=== PATIENT | female | born 1995 | race Caucasian/White ===

== ENCOUNTER → 2019-06-24 | Outpatient (CLI) | payer BC, OTHER ==
--- NOTE | 2019-06-24 08:27 | US ---
EXAMINATION TYPE: US liver DATE OF EXAM: 06/24/2019 COMPARISON: 07/27/2013 CLINICAL HISTORY: R74.8 Elevated Liver Enzymes. Abnormal labs, no pain EXAM MEASUREMENTS: Liver Length: 18.1 cm Gallbladder Wall: 0.2 cm CBD: 0.3 cm Right Kidney: 11.4 x 5.3 x 4.8 cm Pancreas: Tail obscured by overlying bowel gas Liver: Echogenic and enlarged. This finding most commonly related to hepatic steatosis and limits ev aluation for hepatic masses. Hypoechoic lesion in the left hepatic lobe 1.1 x 1.1 x 0.9 cm. Hypoechoi c area, possibly sparing seen adjacent to GB. Gallbladder: wnl Evidence for sonographic Hansen's sign: neg CBD: wnl Right Kidney: wnl IMPRESSION: 1. Sonographic findings most commonly related to hepatic steatosis. Correlate with liver function berkley t results. 2. Left hepatic lobe hypoechoic lesion was not clearly seen on the exam of 2012. This could represent a small cyst although no clear increased through transmission is seen for definitive diagnosis. Thre e-phase CT or MR abdomen could confirm. Area of probable focal fatty sparing is also seen adjacent to the gallbladder fossa in a typical location.
== END | disposition home or self-care (01) ==
LOC: RADUSWWP 07:28
PROVIDERS: ATTEND Family Medicine
DX: R74.8 Abnormal levels of other serum enzymes (principal)
CPT/HCPCS: 76705

== ENCOUNTER → 2023-01-22 | Outpatient (CLI) | payer OTHER ==
--- NOTE | 2023-01-22 10:52 | US ---
EXAMINATION TYPE: US thyroid st tissue head/neck DATE OF EXAM: 01/22/2023 COMPARISON: NONE CLINICAL INDICATION: Female, 27 years old with history of E04.9 NONTOXIC GOITER; Neck swelling GLAND SIZE: Right Lobe: 5.6 x 1.6 x 2.0 cm, mildly enlarged Overall Parenchyma: heterogenous Left Lobe: 5.4 x 1.5 x 1.8 cm, mildly enlarged Overall Parenchyma: heterogenous Isthmus Thickness: 0.3 cm NODULES RIGHT: # of nodules measured on right: 1 1. 0.8 X 0.3 x 0.7 cm, lower medial, cystic or almost completely cystic, anechoic nodule, which is wider than tall, with smooth margins, with echogenic foci. This is most consistent with a colloid nod ule. Prior size: no previous LEFT: # of nodules measured on left: 0 ISTHMUS: # of nodules measured in the isthmus: 0 Bilateral neck scanned, right neck - 2.4 x 0.9 x 2.0cm lymph node, left neck - 2.3 x 1.0 x 1.2cm lymp h node. IMPRESSION: 1. Subcentimeter right thyroid lobe cystic nodule consistent with a colloid nodule. 2. Bilateral neck mildly prominent lymph nodes which may be reactive.
== END | disposition home or self-care (01) ==
LOC: RADUSWWP 09:58
PROVIDERS: ATTEND Family Medicine
DX: E04.1 Nontoxic single thyroid nodule (principal)
CPT/HCPCS: 76536

== ENCOUNTER → 2023-02-27 | Outpatient (CLI) | payer OTHER ==
--- NOTE | 2023-02-27 08:49 | USB ---
Reason for Exam: Clinical finding. Technique: Method: Whole Breast Handheld. Findings: The whole breast of both breasts, the axilla of both breasts and the retroareolar of both breasts were scanned. No solid or cystic masses are identified.. Overall Assessment: Negative, BI-RAD 1 Management: Screening Mammogram of both breasts at age 33. A clinical breast exam by your physician is recommended on an annual basis and results should be correlated with mammographic findings. This exam should not preclude additional follow-up of suspicious palpable abnormalities. Results were given to the patient verbally at the time of exam. Electronically signed and approved by: Darien Cason D.O. Radiologis
--- NOTE | 2023-02-27 09:34 | US ---
EXAMINATION TYPE: US pelvic complete DATE OF EXAM: 02/27/2023 COMPARISON: NONE CLINICAL INDICATION: Female, 27 years old with history of N83.209 N63.10 R74.10; Pt states pelvic oj n and last menses was heavy with clots TECHNIQUE: Transabdominal (TA). Transabdominal sonographic images of the pelvis were acquired. Date of LMP: 02/18/2023 EXAM MEASUREMENTS: Uterus: 11.1 x 4.7 x 5.4 cm Endometrial Stripe: Right horn= 0.3 cm Left horn= 0.5 cm Right Ovary: 4.0 x 3.9 x 2.9 cm Left Ovary: 4.5 x 4.4 x 2.8 cm 1. Uterus: Anteverted wnl 2. Endometrium: Possible bicornuate in appearance 3. Right Ovary: Enlarged, possibly polycystic in appearance 4. Left Ovary: Enlarged, possibly polycystic in appearance, dominant follicle= 1.8 x 1.5 x 1.7 cm 5. Bilateral Adnexa: wnl 6. Posterior cul-de-sac: wnl IMPRESSION: 1. Bicornuate uterus or partial septation of the uterus. 2. Left ovarian cyst. Follow-up in 6 weeks following next normal menstrual period can be performed to document resolution.
--- NOTE | 2023-02-27 10:42 | US ---
EXAMINATION TYPE: US liver DATE OF EXAM: 02/27/2023 COMPARISON: US CLINICAL INDICATION: Female, 27 years old with history of N83.209 N63.10 R74.10; Elevated LFT's TECHNIQUE: Multiple sonographic images of the right upper quadrant are obtained. 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 Hepatomegaly with mild fatty infiltration of the liver
== END | disposition home or self-care (01) ==
LOC: RADUSWWP 08:04
PROVIDERS: ATTEND Family Medicine
DX: N63.10 Unspecified lump in the right breast, unspecified quadrant (principal); N63.20 Unspecified lump in the left breast, unspecified quadrant; R74.01 Elevation of levels of liver transaminase levels; K76.0 Fatty (change of) liver, not elsewhere classified; R16.0 Hepatomegaly, not elsewhere classified; Q51.3 Bicornate uterus; N83.202 Unspecified ovarian cyst, left side
CPT/HCPCS: 76705; 76856

== ENCOUNTER → 2023-06-17 | Outpatient (CLI) | payer OTHER ==
--- NOTE | 2023-06-17 10:24 | US ---
EXAMINATION TYPE: US pelvic complete DATE OF EXAM: 06/17/2023 COMPARISON: 02/27/2023 CLINICAL INDICATION: Female, 27 years old with history of N83.202 OVARIAN CYST, LEFT SIDE; hx of cys t TECHNIQUE: Transabdominal (TA). EXAM MEASUREMENTS: Uterus: 10.5 x 4.6 x 6.1 cm Endometrial Stripe: right 1.6 cm Left 1.1 cm Right Ovary: 3.5 x 2.4 x 3.1 cm Left Ovary: 4.2 x 2.9 x 4.1 cm 1. Uterus: Anteverted Bicornuate vs. septated 2. Endometrium: 2 endometriums visualized 3. Right Ovary: wnl 4. Left Ovary: 2 cm cystic area seen 5. Bilateral Adnexa: wnl 6. Posterior cul-de-sac: wnl Uterus appears stable from comparison of 02/27/2023. Left ovarian cyst was present previously measurin g 1.8 x 1.8 x 1.5 cm. IMPRESSION: 1. Elevated bicornuate uterus present. Septated uterus may be present. The endometrial stripe on the right is thicker 1.6 cm. 2. Left ovarian cyst minimally larger than the comparison study.
== END | disposition home or self-care (01) ==
LOC: RADUSWWP 09:15
PROVIDERS: ATTEND Family Medicine
DX: Q51.3 Bicornate uterus (principal); N83.202 Unspecified ovarian cyst, left side
CPT/HCPCS: 76856

== ENCOUNTER 2023-06-20 13:44 | Emergency (ER) | payer OTHER ==
[2023-06-20 14:02] VITALS: RESP 18; TEMP 98.9
[2023-06-20 14:50] LABS: Basophils % (A) 0 %; Eosinophils # (A) 0.1 k/uL (0-0.7); Eosinophils % (A) 1 %; HGB 12.4 gm/dL (11.4-16.0); Lymphocytes # (A) 2.8 k/uL (1.0-4.8); Lymphocytes % (A) 22 %; MCH 26.8 pg (25.0-35.0); MCHC 33.5 g/dL (31.0-37.0); MCV 79.9 fL (80.0-100.0); Mean Platelet Volume 7.3; Monocytes # (A) 0.4 k/uL (0-1.0); Monocytes % (A) 3 %; Neutrophils # (A) 9.4 k/uL (1.3-7.7); Neutrophils % (A) 73 %; Platelet Count 238 k/uL (150-450); RBC 4.62 m/uL (3.80-5.40); RDW 14.8 % (11.5-15.5); WBC 12.9 k/uL (3.8-10.6)
[2023-06-20 15:05] LABS: ALT 60 U/L (4-34); AST 60 U/L (14-36); African American GFR (CKD) >90 (>60 ml/min/1.73 sqM); Albumin 4.3 g/dL (3.5-5.0); Alkaline Phosphatase 106 U/L (38-126); Amylase 54 U/L (30-110); Anion Gap 10 mmol/L; Blood Urea Nitrogen 11 mg/dL (7-17); Calcium 9.2 mg/dL (8.4-10.2); Carbon Dioxide 25 mmol/L (22-30); Chloride 103 mmol/L (98-107); Glucose 98 mg/dL (74-99); Lipase 69 U/L (23-300); Non-African American GFR(CKD) >90 (>60 ml/min/1.73 sqM); Potassium 4.1 mmol/L (3.5-5.1); Sodium 138 mmol/L (137-145); Total Protein 7.2 g/dL (6.3-8.2)
[2023-06-20 15:23] LABS: Appearance,Urine Cloudy (Clear); Bilirubin,Urine Negative (Negative); Blood,Urine Negative (Negative); Color,Urine Yellow; Glucose,Urine (UA) Negative (Negative); Ketones,Urine Negative (Negative); Leukocyte Esterase,Urine Large (Negative); Mucus,Urine Rare /hpf; Nitrite,Urine Negative (Negative); Protein,Urine Negative (Negative); RBC,Urine 1 /hpf (0-5); Specific Gravity,Urine 1.018 (1.001-1.035); Squamous Epithelial Cell,Urine 15 /hpf (0-4); Urobilinogen,Urine <2.0 mg/dL (<2.0); WBC,Urine 5 /hpf (0-5)
--- NOTE | 2023-06-20 15:50 | US ---
EXAMINATION TYPE: US transvaginal DATE OF EXAM: 06/20/2023 COMPARISON: 06/17/23 CLINICAL INDICATION: Female, 27 years old with history of pain; severe lower abdominal, pelvic pain s dorys yestrday, difficulty using the bathroom TECHNIQUE: Transvaginal (TV). Transvaginal sonographic images were medically necessary to better as sess the following anatomy: Ovaries Date of LMP: 05/25/23 EXAM MEASUREMENTS: Uterus: 9.7x5.1x6.2 cm Endometrial Stripe: 1.7 cm Right Ovary: 4.2x2.4x4.1 cm Left Ovary: 5.4x3.2x4.3 cm 1. Uterus: Anteverted wnl reason a questionable bicornuate uterus on prior exam 2. Endometrium: upper limits, period starts tomorrow 3. Right Ovary: wnl 4. Left Ovary: complex cystic area again seen: 2.0x1.6x2.2cm Spectral, color and waveform doppler imaging shows good arterial and venous flow within the ovaries ; there is no evidence for ovarian torsion. 5. Bilateral Adnexa: Right hypoechoic area noted in right adnexa/ posterior cul-de-sac with free flu id, may be appreciated bst on another imaging modality 6. Posterior cul-de-sac: free fluid ovaries appear bulky with several small peripheral follicles IMPRESSION: 1. Complex left ovarian cystic lesion measuring 2.2 cm. Could represent a complicated ovarian cyst\he morrhagic cyst or cystic lesion. Less likely differential diagnostic considerations of PID or tubo-ov leilani abscess not entirely excluded. Correlate with beta-hCG to exclude ectopic . 2. Hypoechoic area noted in the right adnexa posterior cul-de-sac free fluid not adequately evaluated . Could be related to blood products or other etiology. Recommend CT scan for further evaluation.
[2023-06-20] MEDS ORDERED: ACETAMINOPHEN TAB 325 MG TAB PO STA (16:39)
--- NOTE | 2023-06-20 17:25 | CT ---
EXAMINATION TYPE: CT abdomen pelvis wo con DATE OF EXAM: 06/20/2023 HISTORY: 27F ED patient with pain Additional: Low abdominal pain, ovarian cyst on prior ultrasound. CT DLP: 1587.4 mGycm. Automated Exposure Control for Dose Reduction was Utilized. TECHNIQUE: CT scan of the abdomen and pelvis is performed without oral or IV contrast. COMPARISON: None. FINDINGS: LUNG BASES: No significant abnormality is appreciated. LIVER/GB: No significant abnormality is appreciated. PANCREAS: No significant abnormality is seen. SPLEEN: No significant abnormality is seen. ADRENALS: No significant abnormality is seen. KIDNEYS: No significant abnormality is seen. BOWEL: No significant abnormality is seen. PERITONEAL CAVITY: No peritoneal fluid. No pneumoperitoneum. PELVIC VISCERA: No gross abnormality seen. LYMPH NODES: No greater than 1cm abdominal or pelvic lymph nodes are appreciated. OSSEOUS STRUCTURES: No aggressive lesion. Limitation of the study: Without IV contrast there is limited CT sensitivity for focal visceral lesions, intraluminal filling defects, intravascular pathology. IMPRESSION: No acute process.
--- NOTE | 2023-06-20 17:35 | ED ---
Abdominal Pain HPI - General Chief Complaint: Abdominal Pain Stated Complaint: Cyst Time Seen by Provider: 06/20/23 14:01 Source: patient, RN notes reviewed Mode of arrival: ambulatory Limitations: no limitations - History of Present Illness Initial Comments: Patient is a 27-year-old female presented ER with a chief complaint of lower abdominal pain. Patient states she had a pelvic ultrasound a couple of days ago which revealed a cyst on her left ovary. Patient reports this pain is constant and she is taking [id number] Tylenol with slight relief. Patient is due for her menstrual cycle any day now. Patient denies any constipation or diarrh ea, chest pain, shortness of breath, fever, night sweats, chills. - Related Data Previous Rx's Medication Instructions Recorded Nitrofurantoin Monohyd/M-Cryst 100 mg PO Q12HR #10 cap 06/20/23 [Macrobid] Allergies Allergy/AdvReac Type Severity Reaction Status Date / Time No Known Allergies Allergy Verified 06/20/23 13:53 Review of Systems ROS Statement: Those systems with pertinent positive or pertinent negative responses have been documented in the HPI. ROS Other: All systems not noted in ROS Statement are negative. Past Medical History Past Medical History: No Reported History History of Any Multi-Drug Resistant Organisms: None Reported Past Surgical History: Orthopedic Surgery Past Psychological History: No Psychological Hx Reported Smoking Status: Never smoker Past Alcohol Use History: Occasional Past Drug Use History: None Reported General Exam Limitations: no limitations General appearance: alert, in no apparent distress Respiratory exam: Present: normal lung sounds bilaterally. Absent: respiratory distress, wheezes, rales, rhonchi, stridor Cardiovascular Exam: Present: regular rate, normal rhythm, normal heart sounds. Absent: systolic murmur, diastolic murmur, rubs, gallop, clicks GI/Abdominal exam: Present: soft, tenderness (Suprapubic), normal bowel sounds Neurological exam: Present: alert, oriented X3, CN II-XII intact Psychiatric exam: Present: normal affect, normal mood Skin exam: Present: warm, dry, intact, normal color. Absent: rash Course Vital Signs 06/20/23 06/20/23 13:53 18:06 Temperature 98.9 F Pulse Rate 73 87 Respiratory 18 18 Rate Blood Pressure 129/77 O2 Sat by Pulse 96 97 Oximetry Medical Decision Making - Medical Decision Making Was pt. sent in by a medical professional or institution ([facility]NELL Toussaint, [employer] T[employer] WINDER HELPER, urgent care, hospital, or group home...) When possible be specific @ -No Did you speak to anyone other than the patient for history (EMS, parent, family, police, friend...)? What history was obtained from this source @ -No Did you review nursing and triage notes (agree or disagree)? Why? @ -I reviewed and agree with nursing and triage notes Were old charts reviewed (outside hosp., previous admission, EMS record, old EKG, old radiological studies, urgent care reports/EKG's, group home records)? Report findings @ -No old charts were reviewed Differential Diagnosis (chest pain, altered mental status, abdominal pain women, abdominal pain men, vaginal bleeding, weakness, fever, dyspnea, syncope, headache, dizziness, GI bleed, back pain, seizure, CVA, palpatations, mental health, musculoskeletal)? @ -Differential Abdominal Pain Women: Appendicitis, Cholecystitis, diverticulosis, ischemic bowel, pancreatitis, hepatitis, UTI, gastroenteritis, AAA, incarcerated hernia, bowel obstruction, constipation, inflammatory bowel, hepatitis, peptic ulcer disease, splenic inf arction, perforated viscus, vulvitis, ovarian torsion, PID, kidney stone, placenta abruption, this is not meant to be an all-inclusive list EKG interpreted by me (3pts min.). @ -None X-rays interpreted by me (1pt min.). @ -None done CT interpreted by me (1pt min.). @ -CT abdomen and pelvis showed no acute processes. U/S interpreted by me (1pt. min.). @ -Transvaginal ultrasound showed a 2.2 cm ovarian cyst on the left. Hypoechoic area noted on right adnexa. No free fluid noted in the posterior cul-de-sac. What testing was considered but not performed or refused? (CT, X-rays, U/S, labs)? Why? @ -None What meds were considered but not given or refused? Why? @ -None Did you discuss the management of the patient with other professionals (professionals i.e. DONNELL Toussaint, SP[employer] T[employer] WINDER HELPER, lab, RT, psych nurse, director social welfare, ticket agent, teacher, child support case officer, mental health case manager)? Give summary @ -No Was smoking cessation discussed for >3mins.? @ -No Was critical care preformed (if so, how long)? @ -No Were there social determinants of health that impacted care today? How? (Homelessness, low income, unemployed, alcoholism, drug addiction, transportation, low edu. Level, literacy, decrease access to med. care, custodial, rehab)? @ -No Was there de-escalation of care discussed even if they declined (Discuss DNR or withdrawal of care, Hospice)? DNR status @ -No What co-morbidities impacted this encounter? (DM, HTN, Smoking, COPD, CAD, Cancer, CVA, ARF, Chemo, Hep., AIDS, mental health diagnosis, sleep apnea, morbid obesity)? @ -None Was patient admitted / discharged? Hospital course, mention meds given and route, prescriptions, significant lab abnormalities, going to OR and other pertinent info. @ -Discharge. Labs obtained in the ER were significant for white blood cell count of 12.9. Urine hCG was negative UA showed large leukocytes. Patient received by mouth Tylenol for symptoms in the ER. Patient underwent a transvaginal ultrasound which showed a 2.2 cm ovarian cyst on the left ovary. There is also hypoechoic area noted on the right adnexa, no free fluid found in posterior cul-de-sac. CT abdomen and pelvis showed no acute processes. Patient will be discharged home in stable condition. Patient will be prescribed Macrobid. Patient advised follow-up with PCP and BULK STATION OPERATOR for further care. Patient expressed understanding and agreement with care plan. Undiagnosed new problem with uncertain prognosis? @ -No Drug Therapy requiring intensive monitoring for toxicity (Heparin, Nitro, Insulin, Cardizem)? @ -No Were any procedures done? @ -No Diagnosis/symptom? @ -Urinary tract infection/Left ovarian cyst Acute, or Chronic, or Acute on Chronic? @ -Acute Uncomplicated (without systemic symptoms) or Complicated (systemic symptoms)? @ -Uncomplicated Side effects of treatment? @ -No Exacerbation, Progression, or Severe Exacerbation? @ -No Poses a threat to life or bodily function? How? (Chest pain, [place], [place], pneumonia, PE, COPD, DKA, ARF, appy, cholecystitis, CVA, Diverticulitis, Homicidal, Suicidal, threat to staff... and all critical care pts) @ -No - Lab Data Result diagrams: 06/20/23 14:31 06/20/23 14:31 Lab Results 06/20/23 06/20/23 06/20/23 Range/Units 14:31 14:31 14:31 WBC 12.9 H (3.8-10.6) k/uL RBC 4.62 (3.80-5.40) m/uL Hgb 12.4 (11.4-16.0) gm/dL Hct 37.0 (34.0-46.0) % MCV 79.9 L (80.0-100.0) fL MCH 26.8 (25.0-35.0) pg MCHC 33.5 (31.0-37.0) g/dL RDW 14.8 (11.5-15.5) % Plt Count 238 (150-450) k/uL MPV 7.3 Neutrophils % 73 % Lymphocytes % 22 % Monocytes % 3 % Eosinophils % 1 % Basophils % 0 % Neutrophils # 9.4 H (1.3-7.7) k/uL Lymphocytes # 2.8 (1.0-4.8) k/uL Monocytes # 0.4 (0-1.0) k/uL Eosinophils # 0.1 (0-0.7) k/uL Basophils # 0.0 (0-0.2) k/uL Sodium (137-145) mmol/L Potassium (3.5-5.1) mmol/L Chloride (98-107) mmol/L Carbon Dioxide (22-30) mmol/L Anion Gap mmol/L BUN (7-17) mg/dL Creatinine (0.52-1.04) mg/dL Est GFR (CKD-EPI)AfAm (>60 ml/min/1.73 sqM) Est GFR (CKD-EPI)NonAf (>60 ml/min/1.73 sqM) Glucose (74-99) mg/dL Plasma Lactic Acid Carlos (0.7-2.0) mmol/L Calcium (8.4-10.2) mg/dL Total Bilirubin (0.2-1.3) mg/dL AST (14-36) U/L ALT (4-34) U/L Alkaline Phosphatase (38-126) U/L Total Protein (6.3-8.2) g/dL Albumin (3.5-5.0) g/dL Amylase (30-110) U/L Lipase (23-300) U/L Urine Color Yellow Urine Appearance Cloudy H (Clear) Urine pH 7.0 (5.0-8.0) Ur Specific [place] 1.018 (1.001-1.035) Urine Protein Negative (Negative) Urine Glucose (UA) Negative (Negative) Urine Ketones Negative (Negative) Urine Blood Negative (Negative) Urine Nitrite Negative (Negative) Urine Bilirubin Negative (Negative) Urine Urobilinogen <2.0 (<2.0) mg/dL Ur Leukocyte Esterase Large H (Negative) Urine RBC 1 (0-5) /hpf Urine WBC 5 (0-5) /hpf Ur Squamous Epith Cells 15 H (0-4) /hpf Urine Mucus Rare H (None) /hpf Urine HCG, Qual Not Detected (Not Detectd) 06/20/23 06/20/23 Range/Units 14:31 14:31 WBC (3.8-10.6) k/uL RBC (3.80-5.40) m/uL Hgb (11.4-16.0) gm/dL Hct (34.0-46.0) % MCV (80.0-100.0) fL MCH (25.0-35.0) pg MCHC (31.0-37.0) g/dL RDW (11.5-15.5) % Plt Count (150-450) k/uL MPV Neutrophils % % Lymphocytes % % Monocytes % % Eosinophils % % Basophils % % Neutrophils # (1.3-7.7) k/uL Lymphocytes # (1.0-4.8) k/uL Monocytes # (0-1.0) k/uL Eosinophils # (0-0.7) k/uL Basophils # (0-0.2) k/uL Sodium 138 (137-145) mmol/L Potassium 4.1 (3.5-5.1) mmol/L Chloride 103 (98-107) mmol/L Carbon Dioxide 25 (22-30) mmol/L Anion Gap 10 mmol/L BUN 11 (7-17) mg/dL Creatinine 0.53 (0.52-1.04) mg/dL Est GFR (CKD-EPI)AfAm >90 (>60 ml/min/1.73 sqM) Est GFR (CKD-EPI)NonAf >90 (>60 ml/min/1.73 sqM) Glucose 98 (74-99) mg/dL Plasma Lactic Acid Carlos 0.8 (0.7-2.0) mmol/L Calcium 9.2 (8.4-10.2) mg/dL Total Bilirubin 1.0 (0.2-1.3) mg/dL AST 60 H (14-36) U/L ALT 60 H (4-34) U/L Alkaline Phosphatase 106 (38-126) U/L Total Protein 7.2 (6.3-8.2) g/dL Albumin 4.3 (3.5-5.0) g/dL Amylase 54 (30-110) U/L Lipase 69 (23-300) U/L Urine Color Urine Appearance (Clear) Urine pH (5.0-8.0) Ur Specific [place] (1.001-1.035) Urine Protein (Negative) Urine Glucose (UA) (Negative) Urine Ketones (Negative) Urine Blood (Negative) Urine Nitrite (Negative) Urine Bilirubin (Negative) Urine Urobilinogen (<2.0) mg/dL Ur Leukocyte Esterase (Negative) Urine RBC (0-5) /hpf Urine WBC (0-5) /hpf Ur Squamous Epith Cells (0-4) /hpf Urine Mucus (None) /hpf Urine HCG, Qual (Not Detectd) - Radiology Data Radiology results: report reviewed, image reviewed Disposition Clinical Impression: Ovarian cyst, UTI (urinary tract infection) Disposition: HOME SELF-CARE Condition: Stable Instructions (If sedation given, give patient instructions): Urinary Tract Infection in Women (ED) Additional Instructions: Please return to the Emergency Department if symptoms worsen or any other concerns. Prescriptions: Nitrofurantoin Monohyd/M-Cryst [Macrobid] 100 mg PO Q12HR #10 cap Is patient prescribed a controlled substance at d/c from ED?: No Referrals: Michael Lafleur MD [Primary Care Provider] - 1-2 days Time of Disposition: 18:14
[2023-06-20 18:17] VITALS: BP 129/77; PULSE 87
== END 2023-06-20 18:30 | disposition home or self-care (01) ==
LOC: EC 13:44
DX: N83.202 Unspecified ovarian cyst, left side (principal); N39.0 Urinary tract infection, site not specified
CPT/HCPCS: 36415; 74176; 76830; 80053; 81001; 81025; 82150; 83605; 83690; 85025; 93975; 99284

== ENCOUNTER → 2023-10-31 | Outpatient (CLI) | payer OTHER ==
--- NOTE | 2023-10-31 13:52 | US ---
EXAMINATION TYPE: Transabdominal DATE OF EXAM: 10/31/2023 12:27 PM COMPARISON: NONE CLINICAL INDICATION: Female, 28 years old with history of O99.891 OTHER DISEASES COMPLIATING PREGNANC Y; Low back pain and cramping EXAM PERFORMED: Transvaginal (TV) and Transabdominal (TA) EXAM MEASUREMENTS: GESTATIONAL AGE / DATING Physician Established: Not yet established ( weeks/ days) EDC: Dates by LMP: (7 weeks/2 days) EDC: 06/16/2024 Dates by First Scan: No previous this is first scan ( weeks/ days) EDC: Dates by Current Scan for: (6 weeks/6 days) EDC: 06/19/2024 MATERNAL ANATOMY Uterus: 11.7 x 5.8 x 6.6 cm Right Ovary: 3.3 x 2.7 x 2.3 cm Left Ovary: 3.5 x 2.8 x 2.6 cm Post CDS / Adnexa: WNL Presence of free fluid: No Presence of corpus luteal cyst: No Presence of subchorionic bleed: Yes left uterus = 1.3 x 1.5 x 2.3 cm GESTATION / SURVEY CRL: 8.27 (6 weeks/6 days) MSD: NA ( weeks/ days) Yolk Sac (normal less than 6mm): 0.3 Heart Rate: 124 bpm Rhythm: Normal IUP: Viable IUP Nuchal Translucency 10-14wks (normal less than 3mm): NA Age Appropriate Anatomy Cord Insertion: NA Limbs: NA Calvarium: NA Date of LMP: 09/10/2023 Beta HcG (if available): Not available at this time IMPRESSION: Single live intrauterine gestation ultrasound age 6 weeks 6 days.
== END | disposition home or self-care (01) ==
LOC: RADUSWWP 11:58
PROVIDERS: ATTEND Family Medicine
DX: O99.891 Other specified diseases and conditions complicating pregnancy (principal); M54.50 Low back pain, unspecified; R25.2 Cramp and spasm; Z3A.01 Less than 8 weeks gestation of pregnancy
CPT/HCPCS: 76801; 76817

== ENCOUNTER 2024-03-06 11:28 | Emergency (ER) | payer OTHER ==
[2024-03-06 11:37] VITALS: TEMP 98.2
--- NOTE | 2024-03-06 12:45 | ED ---
General Adult HPI - General Chief complaint: Back Pain/Injury Stated complaint: Back Pain Time Seen by Provider: 03/06/24 11:46 Source: patient, RN notes reviewed Mode of arrival: ambulatory Limitations: no limitations - History of Present Illness Initial comments: 28-year-old female presents to the emergency department for evaluation of back pain. Patient reports that she is currently 25 weeks , follows with Dr. Duong. Patient states that this started after she stood up from a chair at work yesterday. She reports pain in her low back radiating down her right leg. She states that she has not taken anything for this at home. Denies loss of bowel or bladder function, denies saddle anesthesia. Reports good movement today. - Related Data Previous Rx's Medication Instructions Recorded Nitrofurantoin Monohyd/M-Cryst 100 mg PO Q12HR #10 cap 06/20/23 [Macrobid] Allergies Allergy/AdvReac Type Severity Reaction Status Date / Time No Known Allergies Allergy Verified 03/06/24 11:37 Review of Systems ROS Statement: Those systems with pertinent positive or pertinent negative responses have been documented in the HPI. ROS Other: All systems not noted in ROS Statement are negative. Past Medical History Past Medical History: No Reported History History of Any Multi-Drug Resistant Organisms: None Reported Past Surgical History: Orthopedic Surgery Past Psychological History: No Psychological Hx Reported Smoking Status: Never smoker Past Alcohol Use History: Occasional Past Drug Use History: None Reported General Exam Limitations: no limitations General appearance: alert, in no apparent distress Head exam: Present: atraumatic, normocephalic, normal inspection Eye exam: Present: normal appearance, PERRL, EOMI. Absent: scleral icterus, conjunctival injection, periorbital swelling ENT exam: Present: normal exam, mucous membranes moist Neck exam: Present: normal inspection. Absent: tenderness, meningismus, lymphadenopathy Respiratory exam: Present: normal lung sounds bilaterally. Absent: respiratory distress, wheezes, rales, rhonchi, stridor Cardiovascular Exam: Present: regular rate, normal rhythm, normal heart sounds. Absent: systolic murmur, diastolic murmur, rubs, gallop, clicks Extremities exam: Present: normal inspection, full ROM, normal capillary refill. Absent: tenderness, pedal edema, joint swelling, calf tenderness Back exam: Present: normal inspection Neurological exam: Present: alert, oriented X3 Psychiatric exam: Present: normal affect, normal mood Skin exam: Present: warm, dry, intact, normal color. Absent: rash Course Vital Signs 03/06/24 03/06/24 03/06/24 11:29 15:28 16:56 Temperature 98.2 F Pulse Rate 79 74 68 Respiratory 18 16 16 Rate Blood Pressure 145/81 126/63 124/75 O2 Sat by Pulse 98 99 98 Oximetry Medical Decision Making - Medical Decision Making Was pt. sent in by a medical professional or institution (, PA, CIVIL LAWYER, urgent care, hospital, or long term...) When possible be specific @ -[No] Did you speak to anyone other than the patient for history (EMS, parent, family, police, friend...)? What history was obtained from this source @ -[No] Did you review nursing and triage notes (agree or disagree)? Why? @ -[I reviewed and agree with nursing and triage notes] Were old charts reviewed (outside hosp., previous admission, EMS record, old EKG, old radiological studies, urgent care reports/EKG's, long term records)? Report findings @ -[No old charts were reviewed] Differential Diagnosis (chest pain, altered mental status, abdominal pain women, abdominal pain men, vaginal bleeding, weakness, fever, dyspnea, syncope, headache, dizziness, GI bleed, back pain, seizure, CVA, palpatations, mental health, musculoskeletal)? @ -[Differential Back Pain: Strain, zoster, cauda equina syndrome, epidural abscess, vertebral osteomyelitis, discitis, fracture, subluxation, disc herniation, DJD, spinal stenosis, dissection, AAA, pancreatitis, peptic ulcer disease, pyelonephritis, kidney stone, this is not meant to be an all-inclusive list. ] EKG interpreted by me (3pts min.). @ -[none] X-rays interpreted by me (1pt min.). @ -[None done] CT interpreted by me (1pt min.). @ -[None done] U/S interpreted by me (1pt. min.). @ -[None done] What testing was considered but not performed or refused? (CT, X-rays, U/S, labs)? Why? @ -[None] What meds were considered but not given or refused? Why? @ -[None] Did you discuss the management of the patient with other professionals (professionals i.e. , PA, CIVIL LAWYER, lab, RT, psych nurse, social media designer, superannuation clerk, teacher, logistics officer, major case detective)? Give summary @ -[No] Was smoking cessation discussed for >3mins.? @ -[No] Was critical care preformed (if so, how long)? @ -[No] Were there social determinants of health that impacted care today? How? (Homelessness, low income, unemployed, alcoholism, drug addiction, transportation, low edu. Level, literacy, decrease access to med. care, senior living, r ehab)? @ -[No] Was there de-escalation of care discussed even if they declined (Discuss DNR or withdrawal of care, Hospice)? DNR status @ -[No] What co-morbidities impacted this encounter? (DM, HTN, Smoking, COPD, CAD, Cancer, CVA, ARF, Chemo, Hep., AIDS, mental health diagnosis, sleep apnea, morbid obesity)? @ -[None] Was patient admitted / discharged? Hospital course, mention meds given and r oute, prescriptions, significant lab abnormalities, going to OR and other pertinent info. @ -[hospital course] Undiagnosed new problem with uncertain prognosis? @ -[No] Drug Therapy requiring intensive monitoring for toxicity (Heparin, Nitro, Insulin, Cardizem)? @ -[No] Were any procedures done? @ -[No] Diagnosis/symptom? @ -[default] Acute, or Chronic, or Acute on Chronic? @ -[default] Uncomplicated (without systemic symptoms) or Complicated (systemic symptoms)? @ -[default] Side effects of treatment? @ -[No] Exacerbation, Progression, or Severe Exacerbation? @ -[No] Poses a threat to life or bodily function? How? (Chest pain, [place], [place], pneumonia, PE, COPD, DKA, ARF, appy, cholecystitis, CVA, Diverticulitis, Homicidal, Suicidal, threat to staff... and all critical care pts) @ -[No] - Lab Data Lab Results 03/06/24 Range/Units 16:06 Urine Color Yellow Urine Appearance Cloudy H (Clear) Urine pH 6.5 (5.0-8.0) Ur Specific [place] 1.021 (1.001-1.035) Urine Protein Trace H (Negative) Urine Glucose (UA) Negative (Negative) Urine Ketones 2+ H (Negative) Urine Blood Negative (Negative) Urine Nitrite Negative (Negative) Urine Bilirubin Negative (Negative) Urine Urobilinogen <2.0 (<2.0) mg/dL Ur Leukocyte Esterase Negative (Negative) Urine RBC <1 (0-5) /hpf Urine WBC 5 (0-5) /hpf Ur Squamous Epith Cells 5 H (0-4) /hpf Urine Bacteria Rare H (None) /hpf Urine Mucus Moderate H (None) /hpf Disposition Clinical Impression: Back pain Disposition: HOME SELF-CARE Condition: Stable Instructions (If sedation given, give patient instructions): Acute Low Back Pain (ED) Additional Instructions: Please follow up with your primary care provider. Return to the emergency department for new or worsening symptoms. Is patient prescribed a controlled substance at d/c from ED?: No Referrals: Michael Lafleur MD [Primary Care Provider] - 1-2 days
[2024-03-06] MEDS: LIDOCAINE 4% PATCH TOPICAL ONE (12:49)
[2024-03-06] MEDS: ACETAMINOPHEN TAB 500 MG TAB PO STA (12:50)
[2024-03-06] MEDS: CYCLOBENZAPRINE 5 MG TAB PO STA (12:50)
[2024-03-06 15:30] VITALS: RESP 16
[2024-03-06] MEDS: HYDROmorphone 0.5 MG/0.5 ML SYRINGE IM STA (15:35)
[2024-03-06 17:31] LABS: Appearance,Urine Cloudy (Clear); Bacteria,Urine Rare /hpf; Bilirubin,Urine Negative (Negative); Blood,Urine Negative (Negative); Color,Urine Yellow; Glucose,Urine (UA) Negative (Negative); Ketones,Urine 2+ (Negative); Leukocyte Esterase,Urine Negative (Negative); Mucus,Urine Moderate /hpf; Nitrite,Urine Negative (Negative); PH, Urine 6.5 (5.0-8.0); Protein,Urine Trace (Negative); RBC,Urine <1 /hpf (0-5); Specific Gravity,Urine 1.021 (1.001-1.035); Squamous Epithelial Cell,Urine 5 /hpf (0-4); Urobilinogen,Urine <2.0 mg/dL (<2.0); WBC,Urine 5 /hpf (0-5)
[2024-03-06 17:53] VITALS: BP 125/68; PULSE 75
== END 2024-03-06 17:54 | disposition home or self-care (01) ==
LOC: EC 11:28
DX: O99.892 Other specified diseases and conditions complicating childbirth (principal); M54.50 Low back pain, unspecified; Z3A.25 25 weeks gestation of pregnancy
CPT/HCPCS: 96372; 99284; 81001; J1170

== ENCOUNTER 2024-05-26 11:42 | Inpatient (IN) | payer OTHER ==
[2024-05-26 13:02] LABS: ALT 13 U/L (4-34); AST 22 U/L (14-36); African American GFR (CKD) >90 (>60 ml/min/1.73 sqM); Blood Urea Nitrogen 7 mg/dL (7-17); Glucose 83 mg/dL (74-99); LDH 158 U/L (120-246); Non-African American GFR(CKD) >90 (>60 ml/min/1.73 sqM); Uric Acid 4.4 mg/dL (3.7-7.4)
[2024-05-26 13:09] LABS: Basophils % (A) 0 %; Eosinophils % (A) 1 %; HCT 29.3 % (34.0-46.0); HGB 9.7 gm/dL (11.4-16.0); Hypochromasia Slight; Lymphocytes # (A) 1.2 k/uL (1.0-4.8); Lymphocytes % (A) 15 %; MCH 25.8 pg (25.0-35.0); MCHC 33.1 g/dL (31.0-37.0); MCV 77.9 fL (80.0-100.0); Mean Platelet Volume 9.5; Monocytes # (A) 0.3 k/uL (0-1.0); Monocytes % (A) 3 %; Neutrophils # (A) 6.6 k/uL (1.3-7.7); Neutrophils % (A) 81 %; Platelet Count 153 k/uL (150-450); Poikilocytosis Slight; RBC 3.76 m/uL (3.80-5.40); RDW 14.8 % (11.5-15.5); WBC 8.1 k/uL (3.8-10.6)
[2024-05-26 13:27] LABS: Appearance,Urine Clear (Clear); Bilirubin,Urine Negative (Negative); Blood,Urine Negative (Negative); Color,Urine Colorless; Glucose,Urine (UA) Negative (Negative); Ketones,Urine Negative (Negative); Leukocyte Esterase,Urine Small (Negative); Mucus,Urine Rare /hpf; Nitrite,Urine Negative (Negative); PH, Urine 6.5 (5.0-8.0); Protein,Urine Negative (Negative); Specific Gravity,Urine 1.012 (1.001-1.035); Squamous Epithelial Cell,Urine 1 /hpf (0-4); Urobilinogen,Urine <2.0 mg/dL (<2.0); WBC,Urine 1 /hpf (0-5)
[2024-05-26 13:36] LABS: Creatinine,Urine Random 85.5 mg/dL; Protein/Creatinine Ratio,Urine 0.117
[2024-05-26] MEDS: DINOPROSTONE 10 MG INSERT.ER VAGINAL ONE (17:00)
[2024-05-26] MEDS ORDERED: METHYLERGONOVINE 0.2 MG/ML 1 ML AMP IM PRN (17:09)
[2024-05-26] MEDS ORDERED: OXYTOCIN 10 UNIT/ML 1 ML VIAL IM PRN (17:09)
[2024-05-26] MEDS ORDERED: TERBUTALINE 1 MG/ML VIAL SQ PRN (17:09)
[2024-05-26] MEDS ORDERED: LIDOCAINE 0.5% (PF) 5 MG/ML (50 ML SDV) SQ PRN (17:09)
[2024-05-26] MEDS ORDERED: miSOPROStoL 200 MCG TAB RECTAL PRN (17:09)
[2024-05-26] MEDS ORDERED: CARBOPROST TROMETHAMINE 250 MCG/ML 1 ML AMP IM PRN (17:09)
[2024-05-26] MEDS ORDERED: TRANEXAMIC 1,000 MG/100ML-NACL 1,000 MG in EMPTY BAG 1 BAG IV PRN (17:09)
--- NOTE | 2024-05-26 18:46 | P.HPOB ---
History of Present Illness H&P Date: 05/26/24 Chief Complaint: Elevated blood pressures Ms. Abernathy is a 28-year-old at 37 weeks with EDC of 06/16/2024 who presents for PIH workup. The patient had blood pressures 150s to 160s/80s to 90s in triage. PIH workup was unremarkable blood pressures remain elevated over the course of several hours so she will be medically induced. has otherwise been complicated by GDM diet-controlled, migraines, anxiety, depression, and history of depression. The fetus is estimated to be in the 91st percentile for growth based on a 33-week growth US. Obstetric history: 2 FTVD, Complications included gestational hypertension, hemorrhage with second workup: Blood type O+, antibody screen negative, rubella immune, VDRL n onreactive, HBsAg negative, HIV negative, HCV nonreactive, GC unknown, 1 hour GTT elevated, 3-hour GTT not done, GBS negative. Past Medical History Past Medical History: No Reported History History of Any Multi-Drug Resistant Organisms: None Reported Past Surgical History: Orthopedic Surgery Smoking Status: Never smoker Medications and Allergies Home Medications Medication Instructions Recorded Confirmed Type Acetaminophen Tab [Tylenol] 650 mg PO Q6H #30 tab 03/06/24 05/26/24 Rx Aspirin [Adult Low Dose Aspirin EC] 1 tablet PO DAILY 05/26/24 05/26/24 History Pnv No.154/Iron Fum/Folic Acid 1 tablet PO DAILY 05/26/24 05/26/24 History [ Plus Vitamin Tablet] Allergies Allergy/AdvReac Type Severity Reaction Status Date / Time No Known Allergies Allergy Verified 05/26/24 12:06 Exam Vital Signs Temp Pulse Resp BP Pulse Ox 05/26/24 14:52 97.5 F L 84 16 160/91 96 Intake and Output 05/26/24 05/26/24 05/26/24 06:59 14:59 22:59 Other: Weight 137.438 kg Focused physical exam is performed. This is a healthy-appearing in no apparent distress. Breathing is non-labored. Abdomen is gravid and non-tender. Cervical exam is fingertip thick and high. There is notable 1+ pitting edema in bilateral lower extremities. Results Result Diagrams: 05/26/24 12:39 05/26/24 12:35 Abnormal Lab Results - Last 24 Hours (Table) 05/26/24 05/26/24 05/26/24 Range/Units 12:00 12:35 12:39 RBC 3.76 L (3.80-5.40) m/uL Hgb 9.7 L (11.4-16.0) gm/dL Hct 29.3 L (34.0-46.0) % MCV 77.9 L (80.0-100.0) fL Creatinine 0.45 L (0.52-1.04) mg/dL Ur Leukocyte Esterase Small H (Negative) Urine Mucus Rare H (None) /hpf Assessment and Plan Assessment: 28-year-old at 37 weeks here for medical induction of labor for gestational hypertension Plan: Admit, regular diet, Cervidil placed at 5 PM will be discontinued at 8 PM, Nubain 5 mg IV every 4 hours as needed, continuous EFM and tocometer, anticipate vaginal delivery Time with Patient: Greater than 30
[2024-05-26] MEDS: ACETAMINOPHEN TAB 325 MG TAB PO STA (22:12)
[2024-05-27] MEDS: LACTATED RINGERS 1,000 ML IV SCH (03:02)
[2024-05-27 05:23] VITALS: RESP 16
[2024-05-27] MEDS: ACETAMINOPHEN TAB 325 MG TAB PO STA (06:41)
[2024-05-27] MEDS: NALBUPHINE 10 MG/ML (10 ML MDV) IV PRN (06:51)
[2024-05-27] MEDS: OXYTOCIN 30 UNITS/500 ML NS 30 UNIT in SALINE 1 500ML.BAG IV SCH (09:30)
[2024-05-27] MEDS ORDERED: BUTORPHANOL 2 MG/ML 1 ML VIAL IV PRN (12:42)
[2024-05-27] MEDS: BUTORPHANOL 1 MG/ML 1 ML VIAL IV PRN (13:45)
[2024-05-27] MEDS: miSOPROStoL 200 MCG TAB PO PRN (18:45)
[2024-05-27] MEDS ORDERED: SIMETHICONE 80 MG CHEWABLE PO PRN (18:51)
[2024-05-27] MEDS ORDERED: diphenhydrAMINE 50 MG CAP PO PRN (18:51)
[2024-05-27] MEDS ORDERED: diphenhydrAMINE 25 MG CAP PO PRN (18:51)
[2024-05-27] MEDS ORDERED: LANOLIN CREAM 1 GM TUBE TOPICAL PRN (18:51)
[2024-05-27] MEDS ORDERED: BENZOCAINE/MENTHOL SPRAY 1 GM/SPRAY AEROSOL TOPICAL PRN (18:51)
[2024-05-27] MEDS ORDERED: diphenhydrAMINE 50 MG/ML 1 ML VIAL IVP PRN ×2 (18:51)
[2024-05-27] MEDS ORDERED: HYDROCORTISONE 2.5% RECTAL CREAM 30 GM TUBE RECTAL PRN (18:51)
[2024-05-27] MEDS ORDERED: ZOLPIDEM 5 MG TAB PO PRN (18:51)
--- NOTE | 2024-05-27 18:52 | P.PROBDLV ---
Vaginal Delivery Note - . Vaginal Delivery Note: DATE OF SERVICE: 05/27/2024 PROCEDURE: Normal Vaginal Delivery ATTENDING: Dr. Ria Galan MD ESTIMATED BLOOD LOSS: 300 mL FINDINGS: VMI, Apgars 8/8. Weight 9 pounds and 1 ounce. PROCEDURE: Ms. Abernathy is a 28 year old at 37 weeks presenting to abor and delivery for medical induction of labor for gestational hypertension. The has been complicated by diet-controlled gestational diabetes as well. For further details, please review the admitting H&P. Cervidil was placed for approximately 15 hours followed by initiation of pitocin per protocol. AROM was undertaken at 845 revealing clear amniotic fluid. The patient was completely dilated at 1628. She pushed for approximately 2 hours to bring the head to a crown. A viable male infant was delivered at 1837 after reducing one nuchal cord. The infant was placed on the maternal abdomen and bulb suctioned. The infant was noted to be spontaneously crying. Cord was clamped and cut after a 30-second delay. The infant was handed off to the pediatric team. Placenta was delivered whole with gentle cord traction at 1841. Oxytocin was started to facilitate uterine tone. Uterine fundus was found to be firm and below the umbilicus upon fundal massage. Bleeding was still brisk, so PO Cyotec 600mcg were given. Bleeding was then noted to be minimal. Thorough examination of the cervix, vagina, periurethral area, and perineum revealed no lacerations. The patient is stable and allowed to begin the bonding process.
[2024-05-27] MEDS: IBUPROFEN 800 MG TAB PO SCH (19:26)
[2024-05-27] MEDS: SENNOSIDES-DOCUSATE SODIUM 1 EACH TAB PO SCH (19:26)
[2024-05-27] MEDS: ACETAMINOPHEN TAB 500 MG TAB PO PRN (23:31)
[2024-05-28 07:10] LABS: Basophils % (A) 0 %; Eosinophils % (A) 0 %; HCT 26.4 % (34.0-46.0); HGB 8.8 gm/dL (11.4-16.0); Hypochromasia Slight; Lymphocytes # (A) 1.7 k/uL (1.0-4.8); Lymphocytes % (A) 14 %; MCH 25.9 pg (25.0-35.0); MCHC 33.4 g/dL (31.0-37.0); MCV 77.4 fL (80.0-100.0); Mean Platelet Volume 9.1; Monocytes # (A) 0.5 k/uL (0-1.0); Monocytes % (A) 4 %; Neutrophils % (A) 81 %; Platelet Count 158 k/uL (150-450); Poikilocytosis Slight; RBC 3.41 m/uL (3.80-5.40); WBC 12.4 k/uL (3.8-10.6)
[2024-05-28] MEDS: NIFEdipine XL 30 MG TAB.ER.24 PO SCH (10:28)
--- NOTE | 2024-05-28 10:35 | P.DS ---
Providers Date of admission: 05/26/24 15:10 Expected date of discharge: 05/28/24 Attending physician: Vj Duong Primary care physician: Stated None Hospital Course: Ms. Abernathy is a 28 year old now PPD#1 s/p normal vaginal delivery after induction of labor for newly diagnosed gestational hypertension as well as diet-controlled gestational diabetes. The delivery was complicated by a prolonged second stage of labor but ultimately we had a vaginal delivery without any lacerations. her blood pressures have been mild range 140s/80s- 90s. She was started on Procardia XL 30mg daily. If blood pressures are normote nsive through the afternoon we will discharge her home with a plan to check blood pressure in the office Saturday. The patient is doing well this morning and had no acute events overnight. She has no complaints this morning. She reports minimal lochia, passing flatus, voiding without difficulty, ambulating, and eating/drinking without nausea or vomiting. doing well at bedside, s/p circumcision. She denies chest pain, shortness of breathing, fevers, or chills overnight. She denies pain or swelling in the legs. restrictions are reviewed with the patient including pelvic rest for 6 weeks. The patient is encouraged to call the office if she experiences any heavy bleeding, foul- smelling discharge, breast complaints, or any if she has any other concerns. She will follow up in the office on Saturday for BP check. She will go home with motrin, tylenol, and stool softeners. All questions are answered. Assessment: 28 year old now PPD#1 s/p normal vaginal delivery after medical induction of labor at 37 weeks for gestational HTN and poorly controlled gestational diabetes Patient Condition at Discharge: Good Plan - Discharge Summary New Discharge Prescriptions: No Action Acetaminophen Tab [Tylenol] 650 mg PO Q6H #30 tab Pnv No.154/Iron Fum/Folic Acid [ Plus Vitamin Tablet] 1 tablet PO DAILY Aspirin [Adult Low Dose Aspirin EC] 1 tablet PO DAILY Discharge Medication List Acetaminophen Tab [Tylenol] 650 mg PO Q6H #30 tab 03/06/24 [Rx] Aspirin [Adult Low Dose Aspirin EC] 1 tablet PO DAILY 05/26/24 [History] Pnv No.154/Iron Fum/Folic Acid [ Plus Vitamin Tablet] 1 tablet PO DAILY 05/26/24 [History] Follow up Appointment(s)/Referral(s): Vj Duong MD [STAFF PHYSICIAN] - 07/07/24 1:15 pm
[2024-05-28] MEDS: ACETAMINOPHEN TAB 500 MG TAB PO PRN (13:00)
[2024-05-28] MEDS: FERROUS SULFATE 325 MG TAB PO SCH (13:03)
[2024-05-28 14:14] VITALS: BP 141/86; PULSE 80; TEMP 98
== END 2024-05-28 18:53 | disposition home or self-care (01) | DRG 806 ==
LOC: FBPOP 11:42 → 4FBP 15:10
PROVIDERS: ADMIT Obstetrics & Gynecology; ATTEND Obstetrics & Gynecology
PROC: 10E0XZZ Delivery of Products of Conception, External Approach (ICD-10-PCS; principal; 2024-05-26)
PROC: 10907ZC Drainage of Amniotic Fluid, Therapeutic from Products of Conception, Via Natural or Artificial Opening (ICD-10-PCS; 2024-05-26)
PROC: 3E033VJ Introduction of Other Hormone into Peripheral Vein, Percutaneous Approach (ICD-10-PCS; 2024-05-26)
PROC: 3E0P7VZ Introduction of Hormone into Female Reproductive, Via Natural or Artificial Opening (ICD-10-PCS; 2024-05-26)
DX: O13.4 Gestational [pregnancy-induced] hypertension without significant proteinuria, complicating childbirth (principal); O99.354 Diseases of the nervous system complicating childbirth; Z37.0 Single live birth; O24.420 Gestational diabetes mellitus in childbirth, diet controlled; F41.9 Anxiety disorder, unspecified; G43.909 Migraine, unspecified, not intractable, without status migrainosus; O63.1 Prolonged second stage (of labor); O99.344 Other mental disorders complicating childbirth; Z3A.37 37 weeks gestation of pregnancy; Z79.82 Long term (current) use of aspirin
CPT/HCPCS: 59025; 81001; 82565; 82570; 82947; 83615; 84156; 84450; 84460; 84520; 84550; 85025; 86850; 86870; 86880; 86900; 86901

== ENCOUNTER → 2025-01-18 | Outpatient (CLI) | payer OTHER ==
--- NOTE | 2025-01-18 14:06 | US ---
EXAMINATION TYPE: US liver DATE OF EXAM: 01/18/2025 COMPARISON: CT 06/20/2023 CLINICAL INDICATION: Female, 29 years old with history of R74.8 ABNORMAL LEVELS OF OTHER SERUM ENZYME S; Abnormal labs TECHNIQUE: Grayscale and color Doppler imaging of the right upper quadrant. FINDINGS: EXAM MEASUREMENTS: Liver Length: 23.7 cm Gallbladder Wall: 0.3 cm CBD: 0.5 cm, color Doppler imaging was utilized to isolate the common bile duct for measurement. Right Kidney: 11.6 x 5.8 x 6.3 cm LATHE WINDER NOTES: Exam very limited by bowel gas and patient body habitus. Pancreas: portions visualized wnl, tail obscured by overlying bowel gas Liver: Enlarged moderate fatty infiltration is present Gallbladder: wnl Evidence for sonographic Hansen's sign: No CBD: wnl Right Kidney: No hydronephrosis or masses seen IMPRESSION: 1. Gallbladder wall is borderline thickened. 2. Hepatomegaly with moderate fatty infiltration liver. [facility], , 01/18/2025 2:03 PM
== END | disposition home or self-care (01) ==
LOC: RADUSWWP 12:31
PROVIDERS: ATTEND Family Medicine
DX: K76.0 Fatty (change of) liver, not elsewhere classified (principal); R16.0 Hepatomegaly, not elsewhere classified; R74.8 Abnormal levels of other serum enzymes
CPT/HCPCS: 76705